=== PATIENT | female | born 1995 | race Two or more races ===

== ENCOUNTER 2018-08-29 16:53 | Emergency (ER) | payer SELFPAY ==
[~2018-08-29] VITALS: Ht 167.6 cm; Wt 88.0 kg
[2018-08-29 22:35] VITALS: BP 164/104
== END 2018-08-29 22:37 | disposition home or self-care (01) ==
LOC: ER 16:53
DX: S20.212A Contusion of left front wall of thorax, initial encounter (principal); S70.01XA Contusion of right hip, initial encounter; Z88.1 Allergy status to other antibiotic agents; V89.2XXA Person injured in unspecified motor-vehicle accident, traffic, initial encounter; Y93.89 Activity, other specified; Y92.89 Other specified places as the place of occurrence of the external cause; Y99.8 Other external cause status
CPT/HCPCS: 71045; 73502; 81025; 99283